=== PATIENT | male | born 1980 | race Caucasian/White ===

== ENCOUNTER 2016-05-03 11:30 | Emergency (ER) | payer OTHER ==
[~2016-05-03] VITALS: Ht 185.4 cm; Wt 86.2 kg
[~2016-05-03 11:30] MED LIST: FLEXERIL10 MG PO; NAPROSYN 500 M500 MG PO
--- NOTE | 2016-05-03 12:57 | RADIOLOGY REPORT ---
EXAMINATION: XR RIBS, LEFT CLINICAL INFORMATION: Severe left rib cage pain for 2 weeks. COMPARISON: None TECHNIQUE: Chest and left ribs, total of 4 views FINDINGS: Lungs are clear. No consolidation, pneumothorax, or pleural effusion. The cardiomediastinal silhouette and pulmonary vasculature are normal. Osseous structures are unremarkable. Ribs are intact. No fractures are identified. IMPRESSION: Normal chest and ribs.
--- NOTE | 2016-05-03 13:30 | ED GENERAL ADULT ---
History of Present Illness General Chief Complaint: General Adult Stated Complaint: MUSCLE PAIN, LEFT SIDED RIB AREA Source: patient, family (mother) Exam Limitations: no limitations Vital Signs & Intake/Output Vital Signs & Intake/Output Vital Signs Date Time Temp Pulse Resp B/P Pulse O2 O2 Flow FiO2 Ox Delivery Rate 05/03 1142 98.4 85 18 145/94 98 Room Air Allergies Coded Allergies: NO KNOWN ALLERGIES (05/03/16) Reconcile Medications Cyclobenzaprine HCl 10 MG TABLET 1 TAB PO TID PRN MUSCLE RELAXANT MAY CAUSE DROWSINESS CYCLOBENZAPRINE HCL (Flexeril) 10 MG TAB 1 TAB PO TID PRN MUSCLE SPASM Ibuprofen 800 MG TABLET 1 TAB PO Q8H PRN pain Naproxen (Naprosyn) 500 MG TAB 1 TAB PO Q12 PRN PAIN Triage Note: RECEIVED 35 YO MALE C/O LEFT RIBCAGE AREA PAIN X 2 1/2 WEEKS, STARTED INTERMITTENTLY AFTER A COUGHING FIT, BECOMING WORSE AND CONSTANT. PAIN NOW SEVERE. PAIN WORSENS WITH DEEP BREATH Triage Nurses Notes Reviewed? yes HPI: Patient is a 35-year-old male presents complaining of left-sided rib pain. Patient reports pain began 2 weeks ago after a severe coughing fit. Pain is intermittent, worsens with movement. Patient reports the cough has improved but yesterday after work he reports the pain significantly worsened. Patient was given 600 mg of ibuprofen in triage with moderate improvement. Patient denies fevers, abdominal pain, chest pain. Past History Travel History Traveled to [place] past 21 day No Medical History Any Pertinent Medical History? none Neurological: NONE EENT: NONE Cardiovascular: NONE Respiratory: NONE Gastrointestinal: NONE Hepatic: NONE Renal: NONE Musculoskeletal: NONE Psychiatric: NONE Endocrine: NONE Surgical History Surgical History: non-contributory Psychosocial History What is your primary language Luxembourgish Tobacco Use: Current Daily Use Daily Tobacco Use Amount/Type: => 5 Cigarettes daily Family History Hx Contributory? No Review of Systems Review of Systems Constitutional: Denies: fever. EENTM: Reports: no symptoms. Respiratory: Reports: cough (resolved). Denies: short of breath. Cardiovascular: Denies: chest pain. GI: Denies: abdominal pain. Musculoskeletal: Reports: see HPI. Denies: neck pain. Skin: Reports: no symptoms. Neurological/Psychological: Reports: no symptoms. Hematologic/Endocrine: Reports: no symptoms. Immunologic/Allergic: Reports: no symptoms. Physical Exam Physical Exam General Appearance: well developed/nourished, alert, awake Head: atraumatic, normal appearance Eyes: Bilateral: normal appearance. Ears, Nose, Throat: normal pharynx, hearing grossly normal Neck: normal inspection, supple, full range of motion Respiratory: normal breath sounds, no respiratory distress, lungs clear, left lateral rib intercostal tenderness. No palpable crepitus or deformities Cardiovascular: regular rate/rhythm Gastrointestinal: soft, non-tender Back: normal inspection, normal range of motion, no vertebral tenderness Extremities: normal inspection, normal capillary refill, normal range of motion, no edema Neurologic/Psych: no motor/sensory deficits, awake, alert, oriented x 3, normal gait, normal mood/affect Skin: intact, normal color, warm/dry Lymphatic: no anterior cervical sebas Core Measures ACS in differential dx? No CVA/TIA Diagnosis: No Severe Sepsis Present: No Septic Shock Present: No Progress Differential Diagnoses I considered the following diagnoses in my evaluation of the patient: Rib strain , rib fracture, muscle strain, pneumonia, pneumothorax Plan of Care: Lungs clear on exam, no respiratory distress. Results of x-rays discussed with patient and his mother. Appears stable for discharge. Diagnostic Imaging: Viewed by Me: Radiology Read. Discussed w/RAD: Radiology Read. Radiology Impression: PATIENT: ELVIA DAVIS PRESENT AGE: 35 PATIENT ACCOUNT NO: [id number] : 81 LOCATION: [facility] ORDERING PHYSICIAN: MONICA NARANJO DO (TBS) SERVICE DATE: 05/03/16 EXAM TYPE: RAD - XRY-RIBS UNILATERAL-LEFT EXAMINATION: XR RIBS, LEFT CLINICAL INFORMATION: Severe left rib cage pain for 2 weeks. COMPARISON: None TECHNIQUE: Chest and left ribs, total of 4 views FINDINGS: Lungs are clear. No consolidation, pneumothorax, or pleural effusion. The cardiomediastinal silhouette and pulmonary vasculature are normal. Osseous structures are unremarkable. Ribs are intact. No fractures are identified. IMPRESSION: Normal chest and ribs. 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 <Electronically signed in Other Vendor System> SIGNED BY: KACI BASSETT MD 05/03/16 1257 Initial ED EKG: none Departure Departure Time of Disposition: 1341 Disposition: HOME OR SELF CARE Condition: Stable Clinical Impression Primary Impression: Intercostal muscle strain Qualifiers: Encounter type: initial encounter Qualified Code: S29.011A - Strain of muscle and tendon of front wall of thorax, initial encounter Referrals: PATIENT HAS NO PRIMARY CARE DR (PCP/Family) Additional Instructions: Rest, apply heat to the affected area for 20 minutes 4-5 times a day. Return to the emergency department if difficulty breathing, fevers, pain uncontrollable, or worsening of symptoms. Departure Forms: Customer Survey General Discharge Information Prescriptions: Current Visit Scripts Ibuprofen 1 TAB PO Q8H PRN pain #30 TAB Cyclobenzaprine HCl 1 TAB PO TID PRN MUSCLE RELAXANT #20 TAB MAY CAUSE DROWSINESS Critical Care Note Critical Care Note Critical Care Time: non-applicable
[2016-05-03] MEDS ORDERED: IBUPROFEN800 M1 PO (13:42)
[2016-05-03] MEDS ORDERED: CYCLOBENZAPRINE10 M1 PO (13:42)
[2016-05-03 13:50] VITALS: BP 136/84
== END 2016-05-03 13:50 ==
LOC: ERH 11:30
DX: S29.011A Strain of muscle and tendon of front wall of thorax, initial encounter (principal); X58.XXXA Exposure to other specified factors, initial encounter
CPT/HCPCS: 71100-LT